=== PATIENT | female | born 1935 | race Caucasian/White ===

== ENCOUNTER 2021-10-26 21:15 | Inpatient (IN) ==
[2021-10-26] MEDS ORDERED: AMIODARONE 450 MG/9 ML VIAL IV ONE (21:23)
[2021-10-26] MEDS ORDERED: AMIODARONE INJ 150 MG in DEXTROSE 5% 100 ML IV ONE (21:29)
[2021-10-26] MEDS ORDERED: ETOMIDATE 20 MG/10 ML VIAL IV STA (21:30)
[2021-10-26] MEDS ORDERED: ROCURONIUM 100 MG/10 ML VIAL IV STA (21:30)
[2021-10-26] MEDS ORDERED: DOBUTamine 500 MG/250 ML PREMIX IV ONE (21:40)
[2021-10-26] MEDS ORDERED: NOREPINEPHRINE 4 MG/4 ML VIAL IV ONE (21:41)
[2021-10-26 21:45] LABS: Basophils # 0.1 10*3/uL (0.0-0.2); Basophils % 0.6 % (0.0-0.8); Eosinophils # 0.1 10*3/uL (0.0-0.87); Eosinophils % 0.8 % (0.00-10.9); Hematocrit 29.8 VOL% (35.7-47.0); Hemoglobin 8.6 GM/DL (12.0-16.0); Immature Granulocytes % 0.6 %; Immature Granulocytes Absolute 0.06 #; Lymphocytes # 3.8 10*3/uL (1.4-4.0); Lymphocytes % 40.2 % (21.3-54.2); Mean Corpuscular HGB Conc 28.9 GM/DL (32-36); Mean Corpuscular Volume 91.7 FL (87-102); Monocytes % 5.5 % (1.7-12.7); Neutrophils % 52.3 % (38.7-73.9); Platelet Count 236 T/CUMM (130-400); Red Blood Count 3.25 MC/CUMM (3.8-5.5); Red Cell Distribution Width 25.7 % (9.3-17.3); White Blood Count 9.3 T/CUMM (4-12)
[2021-10-26] MEDS: NOREPINEPHRINE 8 MG in SODIUM CHLORIDE 0.9% 242 ML IV PRN (21:45)
[2021-10-26] MEDS: AMIODARONE INJ 450 MG in DEXTROSE 5% 241 ML IV SCH (22:05)
[2021-10-26] MEDS ORDERED: SODIUM CHLORIDE 0.9% 1,000 ML IV STA ×2 (22:08→23:40)
[2021-10-26 22:11] LABS: Alanine Aminotransferase 80 U/L (13-56); Albumin 3.2 G/DL (3.4-5.0); Alkaline Phosphatase 69 U/L (45-117); Aspartate Amino Transferase 108 U/L (0-37); Blood Urea Nitrogen 30 MG/DL (7-18); Calcium 7.8 MG/DL (8.5-10.1); Carbon Dioxide 13 MMOL/L (21-32); Estimated Glom Filtration Rate 19 ML/MIN; Glucose 256 MG/DL (74-106); Osmolality,Calculated 274.8 MOS/KG (273-304); Potassium 4.9 MMOL/L (3.5-5.1); Sodium 130 MMOL/L (136-145); Total Protein 6.6 G/DL (6.4-8.2)
[2021-10-26] MEDS ORDERED: PIPERACILLIN/TAZOBACTAM 3,375 MG in SODIUM CHLORIDE 0.9% 100 ML IV STA (22:12)
[2021-10-26 22:15] LABS: ABG Base Excess -16.2 MMOL/L (-2.5-2.5); ABG HCO3 11.9 MMOL/L (20-26); ABG Oxygen Saturation 95.7 % (95-100); ABG TCO2 11.6 MMOL/L (23-27)
[2021-10-26 22:19] LABS: ABG PH 7.131 (7.35-7.45)
[2021-10-26] MEDS ORDERED: SODIUM BICARBONATE 50 MEQ/50 ML VIAL IV STA (22:20)
[2021-10-26] MEDS ORDERED: SODIUM BICARBONATE 50 MEQ/50 ML VIAL IV ONE (22:20)
[2021-10-26] MEDS ORDERED: FUROSEMIDE 40 MG/4 ML VIAL IV STA (22:29)
[2021-10-26] MEDS ORDERED: FUROSEMIDE 100 MG/10 ML VIAL ONE (22:30)
[2021-10-26 22:38] LABS: Bacteria,Urine Occasional /HPF (Few); Squamous Epithelial Cell,Urine Occasional /HPF (0-10)
[2021-10-26 22:41] LABS: Bilirubin,Urine Negative (Negative); Blood, Urine Negative (Negative); Glucose,Urine (UA) Negative (Negative); Ketones,Urine 80 mg/dL (Negative); Mucus,Urine Occasional /LPF (Occasional); Nitrite,Urine Negative (Negative); Protein,Urine 30 MG/DL; Urine Appearance CLEAR (Clear); Urine Color Yellow (Yellow); Urine Specific Gravity 1.018 (1.001-1.035); Urine Urobilinogen < 2.0 EU/DL (<2.0)
[2021-10-26 22:42] LABS: RBC,Urine 2 /HPF (0-4)
[2021-10-26 23:41] LABS: Platelet Estimate Adequate
[2021-10-26 23:42] LABS: Macrocytosis 1+
[2021-10-26 23:43] LABS: Acanthocytes Few; Schistocytes Slight
[2021-10-27] MEDS ORDERED: MIDAZOLAM 10 MG/2 ML VIAL ONE (00:14)
[2021-10-27] MEDS ORDERED: MIDAZOLAM 2 MG/2 ML VIAL IV STA (00:17)
[2021-10-27] MEDS ORDERED: MIDAZOLAM 100 MG in SODIUM CHLORIDE 0.9% 80 ML IV SCH (01:00)
[2021-10-27 02:12] LABS: INR 1.2; PT Patient Result 13.3 SECS (10.5-12.0); Partial Thromboplastin Time 28.9 SECS (23.8-32.1)
[2021-10-27] MEDS ORDERED: ALBUTEROL 2.5 MG/3 ML NEB RESP TX PRN (02:39)
[2021-10-27] MEDS ORDERED: ONDANSETRON 4 MG/2 ML VIAL IV PRN (02:39)
[2021-10-27] MEDS ORDERED: ROCURONIUM 100 MG/10 ML VIAL IV ONE (03:46)
[2021-10-27 04:06] LABS: ABG Base Excess -8.1 MMOL/L (-2.5-2.5); ABG HCO3 14.4 MMOL/L (20-26); ABG Oxygen Saturation 99.8 % (95-100); ABG PCO2 21.2 MM HG (35-48); ABG PH 7.449 (7.35-7.45); ABG PO2 338.4 MM HG (80-95)
[2021-10-27 04:36] LABS: Basophils % 0.2 % (0.0-0.8); Eosinophils % 0.1 % (0.00-10.9); Hematocrit 32.2 VOL% (35.7-47.0); Hemoglobin 9.8 GM/DL (12.0-16.0); Immature Granulocytes % 0.8 %; Immature Granulocytes Absolute 0.15 #; Lymphocytes % 11.3 % (21.3-54.2); Mean Corpuscular HGB Conc 30.4 GM/DL (32-36); Mean Corpuscular Volume 87.7 FL (87-102); Monocytes % 5.8 % (1.7-12.7); NRBC # 0.02 10*3/uL; Neutrophils % 81.8 % (38.7-73.9); Platelet Count 275 T/CUMM (130-400); Red Blood Count 3.67 MC/CUMM (3.8-5.5); Red Cell Distribution Width 26.4 % (9.3-17.3); White Blood Count 17.7 T/CUMM (4-12)
[2021-10-27] MEDS: PANTOPRAZOLE 40 MG VIAL IV SCH (04:42)
[2021-10-27 04:45] LABS: INR 1.3; PT Patient Result 14.2 SECS (10.5-12.0)
[2021-10-27 05:13] LABS: Albumin 3.3 G/DL (3.4-5.0); Bilirubin,Total 2.7 MG/DL (0.20-1.00); Calcium 8.3 MG/DL (8.5-10.1); Osmolality,Calculated 269.8 MOS/KG (273-304); Potassium 4.3 MMOL/L (3.5-5.1); Thyroid Stimulating Hormone 7.89 uIU/ml (0.358-3.74); Total Protein 6.5 G/DL (6.4-8.2)
[2021-10-27] MEDS: PIPERACILLIN/TAZOBACTAM 3,375 MG in SODIUM CHLORIDE 0.9% 100 ML IV SCH ×3 (06:00→22:00)
[2021-10-27] MEDS ORDERED: SODIUM BICARBONATE 50 MEQ/50 ML VIAL IV STA (06:15)
[2021-10-27] MEDS ORDERED: SODIUM BICARBONATE 50 MEQ/50 ML SYRINGE IV ONE (06:28)
[2021-10-27] MEDS ORDERED: SODIUM CHLORIDE 0.9% 1,000 ML IV SCH (06:30)
[2021-10-27] MEDS: LEVOTHYROXINE 125 MCG TABLET PO SCH (06:31)
[2021-10-27] MEDS ORDERED: DILTIAZEM 25 MG/5 ML VIAL IV ONE (07:36)
[2021-10-27] MEDS ORDERED: DILTIAZEM 50 MG/10 ML VIAL IV ONE (07:37)
[2021-10-27] MEDS ORDERED: FUROSEMIDE 40 MG/4 ML VIAL IV SCH (08:00)
[2021-10-27] MEDS ORDERED: METOPROLOL TARTRATE 25 MG TABLET PO SCH (08:00)
[2021-10-27 08:06] LABS: ABG Base Excess -4.1 MMOL/L (-2.5-2.5); ABG HCO3 18.2 MMOL/L (20-26); ABG Oxygen Saturation 97.2 % (95-100); ABG PO2 89.9 MM HG (80-95); Pt O2 Delivery Device Ventilator
[2021-10-27] MEDS ORDERED: APIXABAN 2.5 MG TABLET PO SCH (09:00)
[2021-10-27] MEDS ORDERED: SODIUM CHLORIDE 0.9% 500 ML IV STA (11:20)
[2021-10-27] MEDS ORDERED: EPINEPHrine 1 MG/ML VIAL ONE (11:29)
[2021-10-27 11:31] LABS: ABG Base Excess -9.3 MMOL/L (-2.5-2.5); ABG PH 7.529 (7.35-7.45); ABG TCO2 10.9 MMOL/L (23-27)
[2021-10-27 11:35] LABS: ABG PCO2 14.3 MM HG (35-48)
[2021-10-27] MEDS: FUROSEMIDE 40 MG/4 ML VIAL IV SCH ×2 (13:51→16:51)
[2021-10-27] MEDS ORDERED: NOREPINEPHRINE 4 MG/4 ML VIAL IV ONE (15:46)
[2021-10-27] MEDS: NOREPINEPHRINE 8 MG in SODIUM CHLORIDE 0.9% 242 ML IV PRN (16:03)
[2021-10-27] MEDS ORDERED: MIDAZOLAM 100 MG in SODIUM CHLORIDE 0.9% 80 ML IV PRN (17:17)
[2021-10-27] MEDS: AMIODARONE INJ 450 MG in DEXTROSE 5% 241 ML IV SCH (18:15)
[2021-10-27] MEDS: ENOXAPARIN 80 MG/0.8 ML SYRINGE SUBCUT SCH (20:49)
[2021-10-28] MEDS: PANTOPRAZOLE 40 MG VIAL IV SCH (02:27)
[2021-10-28 04:05] LABS: ABG Base Excess 0.8 MMOL/L (-2.5-2.5); ABG HCO3 25.1 MMOL/L (20-26); ABG PCO2 23.9 MM HG (35-48); ABG PH 7.573 (7.35-7.45); ABG TCO2 20.5 MMOL/L (23-27); Allen Test Positive; Pt O2 Delivery Device Ventilator
[2021-10-28] MEDS: NOREPINEPHRINE 8 MG in SODIUM CHLORIDE 0.9% 242 ML IV PRN (04:24)
[2021-10-28] MEDS: AMIODARONE INJ 450 MG in DEXTROSE 5% 241 ML IV SCH ×3 (04:46→20:03)
[2021-10-28 05:14] LABS: Basophils % 0.2 % (0.0-0.8); Hematocrit 26.5 VOL% (35.7-47.0); Hemoglobin 8.2 GM/DL (12.0-16.0); Immature Granulocytes % 0.4 %; Immature Granulocytes Absolute 0.04 #; Lymphocytes # 1.4 10*3/uL (1.4-4.0); Lymphocytes % 13.1 % (21.3-54.2); Mean Corpuscular HGB Conc 30.9 GM/DL (32-36); Mean Corpuscular Volume 85.2 FL (87-102); Monocytes % 5.4 % (1.7-12.7); Neutrophils % 80.9 % (38.7-73.9); Platelet Count 185 T/CUMM (130-400); Red Blood Count 3.11 MC/CUMM (3.8-5.5); Red Cell Distribution Width 25.8 % (9.3-17.3); White Blood Count 10.4 T/CUMM (4-12)
[2021-10-28 05:23] LABS: INR 1.7; PT Patient Result 17.9 SECS (10.5-12.0)
[2021-10-28 05:36] LABS: Hypochromia Slight; Microcytosis Slight; Platelet Estimate Normal
[2021-10-28 05:41] LABS: Calcium 7.9 MG/DL (8.5-10.1); Free T4 (Free Thyroxine) 0.92 NG/DL (0.76-1.46); Osmolality,Calculated 275.2 MOS/KG (273-304); Potassium 4.2 MMOL/L (3.5-5.1)
[2021-10-28 05:42] LABS: Albumin 2.3 G/DL (3.4-5.0); Calcium 8.2 MG/DL (8.5-10.1); Osmolality,Calculated 273.4 MOS/KG (273-304); Total Protein 5.3 G/DL (6.4-8.2)
[2021-10-28] MEDS: LEVOTHYROXINE 125 MCG TABLET PO SCH (05:44)
[2021-10-28] MEDS: PIPERACILLIN/TAZOBACTAM 3,375 MG in SODIUM CHLORIDE 0.9% 100 ML IV SCH ×3 (05:44→22:09)
[2021-10-28] MEDS ORDERED: METOPROLOL TARTRATE 5 MG/5 ML VIAL IV ONE (06:22)
[2021-10-28] MEDS ORDERED: DIGOXIN 0.5 MG/2 ML AMP IV ONE (08:23)
[2021-10-28] MEDS: FUROSEMIDE 40 MG/4 ML VIAL IV SCH ×2 (08:44→16:03)
[2021-10-28] MEDS: DEXMEDETOMIDINE 200 MCG in SODIUM CHLORIDE 0.9% 48 ML IV PRN (08:48)
[2021-10-28] MEDS: ENOXAPARIN 80 MG/0.8 ML SYRINGE SUBCUT SCH (20:58)
[2021-10-29] MEDS: AMIODARONE INJ 450 MG in DEXTROSE 5% 241 ML IV SCH ×3 (00:15→20:34)
[2021-10-29] MEDS: DEXMEDETOMIDINE 200 MCG in SODIUM CHLORIDE 0.9% 48 ML IV PRN (02:38)
[2021-10-29] MEDS: PANTOPRAZOLE 40 MG VIAL IV SCH (02:38)
[2021-10-29 03:37] LABS: ABG Base Excess 2.3 MMOL/L (-2.5-2.5); ABG HCO3 26.5 MMOL/L (20-26); ABG PCO2 23.4 MM HG (35-48); ABG TCO2 21.6 MMOL/L (23-27)
[2021-10-29 03:45] LABS: ABG PH 7.604 (7.35-7.45)
[2021-10-29] MEDS: PIPERACILLIN/TAZOBACTAM 3,375 MG in SODIUM CHLORIDE 0.9% 100 ML IV SCH (06:26)
[2021-10-29] MEDS: LEVOTHYROXINE 125 MCG TABLET PO SCH (06:27)
[2021-10-29 06:32] LABS: Basophils % 0.3 % (0.0-0.8); Eosinophils % 0.3 % (0.00-10.9); Hematocrit 27.1 VOL% (35.7-47.0); Hemoglobin 8.1 GM/DL (12.0-16.0); Immature Granulocytes % 0.6 %; Immature Granulocytes Absolute 0.05 #; Lymphocytes # 0.9 10*3/uL (1.4-4.0); Mean Corpuscular HGB Conc 29.9 GM/DL (32-36); Mean Corpuscular Volume 88.3 FL (87-102); Monocytes % 4.6 % (1.7-12.7); Neutrophils % 84.2 % (38.7-73.9); Platelet Count 144 T/CUMM (130-400); Red Blood Count 3.07 MC/CUMM (3.8-5.5); Red Cell Distribution Width 27.6 % (9.3-17.3); White Blood Count 8.6 T/CUMM (4-12)
[2021-10-29 06:39] LABS: INR 1.4; PT Patient Result 15.1 SECS (10.5-12.0)
[2021-10-29 06:52] LABS: Albumin 2.2 G/DL (3.4-5.0); Calcium 8.2 MG/DL (8.5-10.1); Osmolality,Calculated 273.2 MOS/KG (273-304); Potassium 3.1 MMOL/L (3.5-5.1); Total Protein 5.2 G/DL (6.4-8.2)
[2021-10-29 07:16] LABS: Calcium 8.1 MG/DL (8.5-10.1); Potassium 3.5 MMOL/L (3.5-5.1)
[2021-10-29] MEDS: FUROSEMIDE 40 MG/4 ML VIAL IV SCH ×2 (08:16→15:50)
[2021-10-29] MEDS: POTASSIUM CHLORIDE 20 MEQ TABLET PO PRN ×3 (08:29→12:30)
[2021-10-29 09:48] LABS: Allen Test Positive; Pt O2 Delivery Device Ventilator
[2021-10-29 09:49] LABS: ABG Base Excess 1.2 MMOL/L (-2.5-2.5); ABG HCO3 25.5 MMOL/L (20-26); ABG PCO2 37.5 MM HG (35-48); ABG PH 7.437 (7.35-7.45); ABG TCO2 23.4 MMOL/L (23-27)
[2021-10-29] MEDS ORDERED: AMIODARONE 450 MG/9 ML VIAL IV ONE (14:23)
[2021-10-29] MEDS ORDERED: AMIODARONE INJ 450 MG in DEXTROSE 5% 241 ML IV SCH (14:30)
[2021-10-29] MEDS: METOPROLOL SUCCINATE XL 50 MG TABLET PO SCH (14:34)
[2021-10-29] MEDS: ENOXAPARIN 80 MG/0.8 ML SYRINGE SUBCUT SCH (21:07)
[2021-10-30] MEDS: PANTOPRAZOLE 40 MG VIAL IV SCH (03:06)
[2021-10-30 04:55] LABS: Basophils % 0.4 % (0.0-0.8); Eosinophils # 0.1 10*3/uL (0.0-0.87); Eosinophils % 0.8 % (0.00-10.9); Hematocrit 27.4 VOL% (35.7-47.0); Immature Granulocytes % 0.6 %; Immature Granulocytes Absolute 0.04 #; Lymphocytes # 1.4 10*3/uL (1.4-4.0); Lymphocytes % 19.4 % (21.3-54.2); Mean Corpuscular HGB Conc 29.2 GM/DL (32-36); Mean Corpuscular Volume 90.7 FL (87-102); Monocytes % 8.1 % (1.7-12.7); Neutrophils % 70.7 % (38.7-73.9); Platelet Count 125 T/CUMM (130-400); Red Blood Count 3.02 MC/CUMM (3.8-5.5); Red Cell Distribution Width 26.8 % (9.3-17.3); White Blood Count 7.2 T/CUMM (4-12)
[2021-10-30 05:22] LABS: Calcium 8.1 MG/DL (8.5-10.1); Potassium 3.3 MMOL/L (3.5-5.1)
[2021-10-30] MEDS: LEVOTHYROXINE 125 MCG TABLET PO SCH (05:48)
[2021-10-30] MEDS: POTASSIUM CHLORIDE 20 MEQ TABLET PO PRN ×3 (05:48→12:26)
[2021-10-30] MEDS: FUROSEMIDE 40 MG/4 ML VIAL IV SCH ×2 (08:43→15:16)
[2021-10-30] MEDS: METOPROLOL SUCCINATE XL 50 MG TABLET PO SCH (10:29)
[2021-10-30] MEDS: LACTULOSE 20 GM/30 ML UDCUP PO PRN (10:29)
[2021-10-30] MEDS: MAGNESIUM SULF RIDER 2 GM/50 ML PREMIX IV PRN (10:32)
[2021-10-30] MEDS ORDERED: traMADol 50 MG TABLET PO PRN (12:09)
[2021-10-30] MEDS: AMIODARONE INJ 450 MG in DEXTROSE 5% 241 ML IV SCH ×2 (12:25→13:59)
[2021-10-30] MEDS: SERTRALINE 25 MG TABLET PO SCH ×2 (12:27→21:25)
[2021-10-30] MEDS: tiZANidine 4 MG TABLET PO PRN (16:47)
[2021-10-30] MEDS: ENOXAPARIN 80 MG/0.8 ML SYRINGE SUBCUT SCH (21:25)
[2021-10-31 04:05] LABS: Basophils % 0.5 % (0.0-0.8); Eosinophils # 0.1 10*3/uL (0.0-0.87); Eosinophils % 1.2 % (0.00-10.9); Hematocrit 26.3 VOL% (35.7-47.0); Hemoglobin 7.7 GM/DL (12.0-16.0); Immature Granulocytes % 0.5 %; Immature Granulocytes Absolute 0.03 #; Lymphocytes # 1.5 10*3/uL (1.4-4.0); Lymphocytes % 26.3 % (21.3-54.2); Mean Corpuscular HGB Conc 29.3 GM/DL (32-36); Mean Corpuscular Volume 90.4 FL (87-102); Monocytes % 7.6 % (1.7-12.7); NRBC # 0.02 10*3/uL; Neutrophils % 63.9 % (38.7-73.9); Platelet Count 110 T/CUMM (130-400); Red Blood Count 2.91 MC/CUMM (3.8-5.5); Red Cell Distribution Width 25.6 % (9.3-17.3); White Blood Count 5.8 T/CUMM (4-12)
[2021-10-31] MEDS: PANTOPRAZOLE 40 MG VIAL IV SCH (04:06)
[2021-10-31 04:19] LABS: Calcium 8.2 MG/DL (8.5-10.1); Osmolality,Calculated 282.8 MOS/KG (273-304); Potassium 4.5 MMOL/L (3.5-5.1)
[2021-10-31] MEDS: tiZANidine 4 MG TABLET PO PRN ×2 (04:20→14:07)
[2021-10-31 04:27] LABS: Hypochromia Slight
[2021-10-31] MEDS: AMIODARONE INJ 450 MG in DEXTROSE 5% 241 ML IV SCH (04:39)
[2021-10-31] MEDS ORDERED: SODIUM CHLORIDE 0.9% 250 ML IV ONE (05:15)
[2021-10-31] MEDS: LEVOTHYROXINE 125 MCG TABLET PO SCH (06:58)
[2021-10-31] MEDS: FUROSEMIDE 40 MG/4 ML VIAL IV SCH (08:30)
[2021-10-31] MEDS: METOPROLOL SUCCINATE XL 50 MG TABLET PO SCH (08:54)
[2021-10-31] MEDS ORDERED: AMIODARONE 200 MG TABLET PO SCH (09:00)
[2021-10-31] MEDS: PANTOPRAZOLE 40 MG TABLET PO SCH (10:25)
[2021-10-31] MEDS: SERTRALINE 25 MG TABLET PO SCH ×2 (10:25→20:20)
[2021-11-01] MEDS: tiZANidine 4 MG TABLET PO PRN ×2 (02:52→16:13)
[2021-11-01] MEDS: LEVOTHYROXINE 125 MCG TABLET PO SCH (05:44)
[2021-11-01] MEDS: SERTRALINE 25 MG TABLET PO SCH ×2 (08:19→20:03)
[2021-11-01] MEDS: PANTOPRAZOLE 40 MG TABLET PO SCH (08:19)
[2021-11-01] MEDS: AMIODARONE 200 MG TABLET PO SCH (08:19)
[2021-11-01] MEDS ORDERED: METOPROLOL SUCCINATE XL 25 MG TABLET PO SCH (09:00)
[2021-11-01 09:42] LABS: Calcium 8.2 MG/DL (8.5-10.1)
[2021-11-01 09:45] LABS: Basophils % 0.6 % (0.0-0.8); Eosinophils # 0.1 10*3/uL (0.0-0.87); Eosinophils % 1.2 % (0.00-10.9); Hematocrit 24.8 VOL% (35.7-47.0); Hemoglobin 7.3 GM/DL (12.0-16.0); Immature Granulocytes % 0.6 %; Immature Granulocytes Absolute 0.03 #; Lymphocytes % 20.7 % (21.3-54.2); Mean Corpuscular HGB Conc 29.4 GM/DL (32-36); Mean Corpuscular Volume 90.2 FL (87-102); Neutrophils % 70.9 % (38.7-73.9); Platelet Count 118 T/CUMM (130-400); Red Blood Count 2.75 MC/CUMM (3.8-5.5); Red Cell Distribution Width 26.2 % (9.3-17.3)
[2021-11-01] MEDS ORDERED: INFLUENZA VIRUS VACCINE 0.5 ML SYRINGE IM ONE (10:55)
[2021-11-01] MEDS: traMADol 50 MG TABLET PO PRN ×2 (12:26→20:03)
[2021-11-01] MEDS ORDERED: SODIUM CHLORIDE 0.9% 500 ML IV SCH (12:30)
[2021-11-01] MEDS ORDERED: HYDROmorphone 2 MG/1 ML VIAL IV ONE (12:33)
[2021-11-02] MEDS: tiZANidine 4 MG TABLET PO PRN ×3 (00:50→20:20)
[2021-11-02] MEDS ORDERED: ALPRAZolam 0.25 MG TABLET PO ONE (05:31)
[2021-11-02] MEDS: LEVOTHYROXINE 125 MCG TABLET PO SCH (05:38)
[2021-11-02 05:58] LABS: Basophils # 0.1 10*3/uL (0.0-0.2); Basophils % 0.6 % (0.0-0.8); Eosinophils # 0.1 10*3/uL (0.0-0.87); Eosinophils % 1.3 % (0.00-10.9); Hematocrit 30.7 VOL% (35.7-47.0); Hemoglobin 8.9 GM/DL (12.0-16.0); Immature Granulocytes % 0.6 %; Immature Granulocytes Absolute 0.05 #; Lymphocytes # 2.8 10*3/uL (1.4-4.0); Lymphocytes % 31.8 % (21.3-54.2); Mean Corpuscular Volume 90.3 FL (87-102); Monocytes % 7.5 % (1.7-12.7); NRBC # 0.03 10*3/uL; Neutrophils % 58.2 % (38.7-73.9); Platelet Count 218 T/CUMM (130-400); Red Cell Distribution Width 25.5 % (9.3-17.3); White Blood Count 8.8 T/CUMM (4-12)
[2021-11-02 06:09] LABS: Bilirubin,Total 2.1 MG/DL (0.20-1.00); Calcium 9.3 MG/DL (8.5-10.1); Osmolality,Calculated 274.5 MOS/KG (273-304); Potassium 4.8 MMOL/L (3.5-5.1); Total Protein 6.7 G/DL (6.4-8.2)
[2021-11-02 06:28] LABS: Acanthocytes Few; Hypochromia 1+
[2021-11-02 06:29] LABS: Microcytosis 1+; Polychromasia Slight; Target Cells Slight
[2021-11-02 06:30] LABS: Anisocytosis 1+; Platelet Estimate Normal; Schistocytes Slight
[2021-11-02] MEDS: PANTOPRAZOLE 40 MG TABLET PO SCH (08:19)
[2021-11-02] MEDS: AMIODARONE 200 MG TABLET PO SCH (08:19)
[2021-11-02] MEDS: SERTRALINE 25 MG TABLET PO SCH ×2 (08:19→20:20)
[2021-11-02] MEDS ORDERED: MORPHINE 2 MG/1 ML SYRINGE IV ONE (08:29)
[2021-11-02] MEDS ORDERED: diphenhydrAMINE CAP 25 MG CAPSULE PO ONE (08:30)
[2021-11-02] MEDS: APIXABAN 2.5 MG TABLET PO SCH ×2 (09:36→20:20)
[2021-11-02] MEDS ORDERED: LORazepam 2 MG/1 ML VIAL ONE (11:41)
[2021-11-02] MEDS ORDERED: LORazepam 2 MG/1 ML VIAL IV ONE (11:45)
[2021-11-02] MEDS: ALPRAZolam 0.25 MG TABLET PO PRN ×2 (12:20→20:20)
[2021-11-02] MEDS ORDERED: HALOPERIDOL 5 MG/ML AMP IV ONE (15:32)
[2021-11-02 17:56] LABS: Bacteria,Urine Occasional /HPF (Few); Bilirubin,Urine Negative (Negative); Blood, Urine Small mg/dL (Negative); Glucose,Urine (UA) Negative (Negative); Hyaline Casts,Urine 1 /LPF (0-3); Ketones,Urine 5 mg/dL (Negative); Mucus,Urine Occasional /LPF (Occasional); Nitrite,Urine Negative (Negative); Protein,Urine 30 MG/DL; RBC,Urine 3 /HPF (0-4); Squamous Epithelial Cell,Urine Occasional /HPF (0-10); Urine Appearance CLEAR (Clear); Urine Color Yellow (Yellow); Urine Specific Gravity 1.017 (1.001-1.035); Urine Urobilinogen < 2.0 EU/DL (<2.0)
[2021-11-02] MEDS: QUEtiapine 25 MG TABLET PO SCH (20:20)
[2021-11-03] MEDS: LEVOTHYROXINE 125 MCG TABLET PO SCH (06:13)
[2021-11-03 07:39] LABS: Basophils % 0.6 % (0.0-0.8); Eosinophils # 0.1 10*3/uL (0.0-0.87); Eosinophils % 1.1 % (0.00-10.9); Hematocrit 29.6 VOL% (35.7-47.0); Hemoglobin 8.6 GM/DL (12.0-16.0); Immature Granulocytes % 0.5 %; Immature Granulocytes Absolute 0.03 #; Lymphocytes # 1.2 10*3/uL (1.4-4.0); Lymphocytes % 18.8 % (21.3-54.2); Mean Corpuscular HGB Conc 29.1 GM/DL (32-36); Mean Corpuscular Volume 89.4 FL (87-102); Monocytes % 7.1 % (1.7-12.7); Neutrophils % 71.9 % (38.7-73.9); Platelet Count 130 T/CUMM (130-400); Red Blood Count 3.31 MC/CUMM (3.8-5.5); Red Cell Distribution Width 25.8 % (9.3-17.3); White Blood Count 6.4 T/CUMM (4-12)
[2021-11-03 08:18] LABS: Calcium 8.6 MG/DL (8.5-10.1); Osmolality,Calculated 276.1 MOS/KG (273-304); Potassium 3.7 MMOL/L (3.5-5.1)
[2021-11-03] MEDS ORDERED: METOPROLOL SUCCINATE XL 25 MG TABLET PO SCH (09:00)
[2021-11-03] MEDS: APIXABAN 2.5 MG TABLET PO SCH ×2 (09:35→20:42)
[2021-11-03] MEDS: PANTOPRAZOLE 40 MG TABLET PO SCH (09:35)
[2021-11-03] MEDS: AMIODARONE 200 MG TABLET PO SCH (09:35)
[2021-11-03] MEDS: SERTRALINE 25 MG TABLET PO SCH ×2 (09:35→20:43)
[2021-11-03] MEDS: ALPRAZolam 0.25 MG TABLET PO PRN ×2 (14:34→23:51)
[2021-11-03] MEDS: METOPROLOL SUCCINATE XL 25 MG TABLET PO SCH (20:42)
[2021-11-03] MEDS: QUEtiapine 25 MG TABLET PO SCH (20:42)
[2021-11-04] MEDS: traMADol 50 MG TABLET PO PRN ×2 (04:50→16:37)
[2021-11-04] MEDS: LEVOTHYROXINE 125 MCG TABLET PO SCH (06:42)
[2021-11-04 07:07] LABS: Basophils % 0.4 % (0.0-0.8); Eosinophils # 0.1 10*3/uL (0.0-0.87); Eosinophils % 0.7 % (0.00-10.9); Hematocrit 28.9 VOL% (35.7-47.0); Hemoglobin 8.6 GM/DL (12.0-16.0); Immature Granulocytes % 0.6 %; Immature Granulocytes Absolute 0.05 #; Lymphocytes # 1.5 10*3/uL (1.4-4.0); Lymphocytes % 16.4 % (21.3-54.2); Mean Corpuscular HGB Conc 29.8 GM/DL (32-36); Mean Corpuscular Volume 89.2 FL (87-102); Monocytes % 7.5 % (1.7-12.7); Neutrophils % 74.4 % (38.7-73.9); Platelet Count 201 T/CUMM (130-400); Red Blood Count 3.24 MC/CUMM (3.8-5.5); Red Cell Distribution Width 26.1 % (9.3-17.3)
[2021-11-04 07:29] LABS: Calcium 8.7 MG/DL (8.5-10.1); Osmolality,Calculated 267.7 MOS/KG (273-304)
[2021-11-04] MEDS: PANTOPRAZOLE 40 MG TABLET PO SCH (09:06)
[2021-11-04] MEDS: APIXABAN 2.5 MG TABLET PO SCH ×2 (09:06→21:17)
[2021-11-04] MEDS: SERTRALINE 25 MG TABLET PO SCH ×2 (09:06→21:17)
[2021-11-04] MEDS: METOPROLOL SUCCINATE XL 25 MG TABLET PO SCH ×2 (09:06→21:17)
[2021-11-04] MEDS: AMIODARONE 200 MG TABLET PO SCH (09:06)
[2021-11-04] MEDS: cefTRIAXone 1,000 MG in SODIUM CHLORIDE 0.9% 100 ML IV SCH (10:57)
[2021-11-04] MEDS: DILTIAZEM INJ 100 MG in SODIUM CHLORIDE 0.9% 100 ML IV SCH (11:33)
[2021-11-04] MEDS: QUEtiapine 25 MG TABLET PO SCH (21:17)
[2021-11-04] MEDS: ALPRAZolam 0.25 MG TABLET PO PRN (21:31)
[2021-11-04] MEDS: ACETAMINOPHEN 325 MG TABLET PO PRN (21:32)
[2021-11-05] MEDS: LEVOTHYROXINE 125 MCG TABLET PO SCH (05:43)
[2021-11-05 05:51] LABS: Basophils # 0.1 10*3/uL (0.0-0.2); Basophils % 0.7 % (0.0-0.8); Eosinophils # 0.1 10*3/uL (0.0-0.87); Eosinophils % 1.5 % (0.00-10.9); Hematocrit 26.7 VOL% (35.7-47.0); Hemoglobin 7.8 GM/DL (12.0-16.0); Immature Granulocytes % 0.7 %; Immature Granulocytes Absolute 0.05 #; Lymphocytes # 1.9 10*3/uL (1.4-4.0); Lymphocytes % 25.9 % (21.3-54.2); Mean Corpuscular HGB Conc 29.2 GM/DL (32-36); Mean Corpuscular Volume 87.8 FL (87-102); Monocytes % 6.8 % (1.7-12.7); NRBC # 0.02 10*3/uL; Neutrophils % 64.4 % (38.7-73.9); Platelet Count 215 T/CUMM (130-400); Red Blood Count 3.04 MC/CUMM (3.8-5.5); Red Cell Distribution Width 27.5 % (9.3-17.3); White Blood Count 7.4 T/CUMM (4-12)
[2021-11-05 06:21] LABS: Calcium 8.8 MG/DL (8.5-10.1); Osmolality,Calculated 265.7 MOS/KG (273-304); Potassium 3.8 MMOL/L (3.5-5.1)
[2021-11-05] MEDS: DILTIAZEM INJ 100 MG in SODIUM CHLORIDE 0.9% 100 ML IV SCH ×2 (07:29→12:51)
[2021-11-05] MEDS: SERTRALINE 25 MG TABLET PO SCH ×2 (08:52→21:35)
[2021-11-05] MEDS: AMIODARONE 200 MG TABLET PO SCH (08:52)
[2021-11-05] MEDS: PANTOPRAZOLE 40 MG TABLET PO SCH (08:52)
[2021-11-05] MEDS: METOPROLOL SUCCINATE XL 25 MG TABLET PO SCH ×2 (08:52→21:35)
[2021-11-05] MEDS: traMADol 50 MG TABLET PO PRN ×2 (08:53→16:48)
[2021-11-05] MEDS: APIXABAN 2.5 MG TABLET PO SCH ×2 (08:53→21:35)
[2021-11-05] MEDS: cefTRIAXone 1,000 MG in SODIUM CHLORIDE 0.9% 100 ML IV SCH (08:54)
[2021-11-05] MEDS ORDERED: FUROSEMIDE 40 MG/4 ML VIAL IV ONE (09:38)
[2021-11-05] MEDS ORDERED: BENZONATATE 100 MG CAPSULE PO PRN (10:08)
[2021-11-05] MEDS: ALPRAZolam 0.25 MG TABLET PO PRN (12:48)
[2021-11-05] MEDS: QUEtiapine 25 MG TABLET PO SCH (21:35)
[2021-11-06] MEDS: tiZANidine 4 MG TABLET PO PRN (04:04)
[2021-11-06] MEDS: LEVOTHYROXINE 125 MCG TABLET PO SCH (06:00)
[2021-11-06] MEDS ORDERED: FUROSEMIDE 40 MG/4 ML VIAL IV ONE (08:00)
[2021-11-06] MEDS ORDERED: DILTIAZEM 30 MG TABLET PO SCH (09:00)
[2021-11-06] MEDS: cefTRIAXone 1,000 MG in SODIUM CHLORIDE 0.9% 100 ML IV SCH (09:30)
[2021-11-06] MEDS: AMIODARONE 200 MG TABLET PO SCH (09:39)
[2021-11-06] MEDS: PANTOPRAZOLE 40 MG TABLET PO SCH (09:42)
[2021-11-06] MEDS: METOPROLOL SUCCINATE XL 25 MG TABLET PO SCH ×2 (09:43→22:04)
[2021-11-06] MEDS: SERTRALINE 25 MG TABLET PO SCH ×2 (09:44→22:03)
[2021-11-06] MEDS: SACUBITRIL/VALSARTAN 49-51 MG TABLET PO SCH (09:45)
[2021-11-06] MEDS: ALPRAZolam 0.25 MG TABLET PO PRN (17:45)
[2021-11-06] MEDS: QUEtiapine 25 MG TABLET PO SCH (22:04)
[2021-11-07] MEDS: LEVOTHYROXINE 125 MCG TABLET PO SCH (06:29)
[2021-11-07 07:07] LABS: Basophils # 0.1 10*3/uL (0.0-0.2); Basophils % 0.6 % (0.0-0.8); Eosinophils # 0.2 10*3/uL (0.0-0.87); Eosinophils % 1.8 % (0.00-10.9); Hematocrit 29.2 VOL% (35.7-47.0); Hemoglobin 8.4 GM/DL (12.0-16.0); Immature Granulocytes % 0.4 %; Immature Granulocytes Absolute 0.04 #; Lymphocytes # 1.4 10*3/uL (1.4-4.0); Lymphocytes % 14.9 % (21.3-54.2); Mean Corpuscular HGB Conc 28.8 GM/DL (32-36); Mean Corpuscular Volume 89.3 FL (87-102); Neutrophils % 77.3 % (38.7-73.9); Platelet Count 231 T/CUMM (130-400); Red Blood Count 3.27 MC/CUMM (3.8-5.5); Red Cell Distribution Width 29.4 % (9.3-17.3); White Blood Count 9.4 T/CUMM (4-12)
[2021-11-07 07:34] LABS: Calcium 9.1 MG/DL (8.5-10.1); Osmolality,Calculated 269.2 MOS/KG (273-304); Potassium 3.9 MMOL/L (3.5-5.1)
[2021-11-07] MEDS: SACUBITRIL/VALSARTAN 49-51 MG TABLET PO SCH (10:19)
[2021-11-07] MEDS: PANTOPRAZOLE 40 MG TABLET PO SCH (10:20)
[2021-11-07] MEDS: ALPRAZolam 0.25 MG TABLET PO PRN (10:20)
[2021-11-07] MEDS: AMIODARONE 200 MG TABLET PO SCH (10:20)
[2021-11-07] MEDS: METOPROLOL SUCCINATE XL 25 MG TABLET PO SCH ×2 (10:20→22:01)
[2021-11-07] MEDS: SERTRALINE 25 MG TABLET PO SCH ×2 (10:21→22:01)
[2021-11-07] MEDS: MAGNESIUM SULF RIDER 2 GM/50 ML PREMIX IV PRN (10:27)
[2021-11-07] MEDS: cefTRIAXone 1,000 MG in SODIUM CHLORIDE 0.9% 100 ML IV SCH (10:30)
[2021-11-07] MEDS ORDERED: ONDANSETRON 4 MG/2 ML VIAL ONE (13:16)
[2021-11-07] MEDS: QUEtiapine 25 MG TABLET PO SCH (22:02)
[2021-11-07] MEDS: ACETAMINOPHEN 325 MG TABLET PO PRN (22:28)
[2021-11-08] MEDS: LEVOTHYROXINE 125 MCG TABLET PO SCH (06:01)
[2021-11-08 06:59] LABS: Basophils # 0.1 10*3/uL (0.0-0.2); Basophils % 0.9 % (0.0-0.8); Eosinophils # 0.1 10*3/uL (0.0-0.87); Eosinophils % 1.1 % (0.00-10.9); Hematocrit 30.1 VOL% (35.7-47.0); Hemoglobin 8.9 GM/DL (12.0-16.0); Immature Granulocytes % 0.6 %; Immature Granulocytes Absolute 0.05 #; Lymphocytes # 1.4 10*3/uL (1.4-4.0); Lymphocytes % 17.2 % (21.3-54.2); Mean Corpuscular HGB Conc 29.6 GM/DL (32-36); Mean Corpuscular Volume 91.2 FL (87-102); Neutrophils % 74.2 % (38.7-73.9); Platelet Count 318 T/CUMM (130-400); Red Cell Distribution Width 30.5 % (9.3-17.3); White Blood Count 8.1 T/CUMM (4-12)
[2021-11-08 07:26] LABS: Calcium 8.4 MG/DL (8.5-10.1); Osmolality,Calculated 282.4 MOS/KG (273-304)
[2021-11-08 07:27] LABS: Calcium 8.6 MG/DL (8.5-10.1); Osmolality,Calculated 282.4 MOS/KG (273-304); Potassium 4.1 MMOL/L (3.5-5.1)
[2021-11-08] MEDS ORDERED: FUROSEMIDE 40 MG TABLET PO ONE (09:03)
[2021-11-08] MEDS: SACUBITRIL/VALSARTAN 49-51 MG TABLET PO SCH (10:10)
[2021-11-08] MEDS: AMIODARONE 200 MG TABLET PO SCH (10:10)
[2021-11-08] MEDS: PANTOPRAZOLE 40 MG TABLET PO SCH (10:11)
[2021-11-08] MEDS: METOPROLOL SUCCINATE XL 25 MG TABLET PO SCH ×2 (10:11→20:43)
[2021-11-08] MEDS: SERTRALINE 25 MG TABLET PO SCH ×2 (10:11→20:43)
[2021-11-08] MEDS: ALPRAZolam 0.25 MG TABLET PO PRN ×2 (10:17→17:04)
[2021-11-08] MEDS: ACETAMINOPHEN 325 MG TABLET PO PRN ×2 (10:17→17:05)
[2021-11-08] MEDS: cefTRIAXone 1,000 MG in SODIUM CHLORIDE 0.9% 100 ML IV SCH (10:42)
[2021-11-08] MEDS: QUEtiapine 25 MG TABLET PO SCH (20:43)
[2021-11-08] MEDS: APIXABAN 2.5 MG TABLET PO SCH (20:43)
[2021-11-09] MEDS: ACETAMINOPHEN 325 MG TABLET PO PRN ×2 (04:00→09:33)
[2021-11-09] MEDS: LEVOTHYROXINE 125 MCG TABLET PO SCH (05:49)
[2021-11-09 06:59] LABS: Calcium 8.6 MG/DL (8.5-10.1); Osmolality,Calculated 283.4 MOS/KG (273-304); Potassium 3.6 MMOL/L (3.5-5.1)
[2021-11-09 07:19] LABS: Basophils # 0.1 10*3/uL (0.0-0.2); Basophils % 0.8 % (0.0-0.8); Eosinophils # 0.1 10*3/uL (0.0-0.87); Hemoglobin 9.7 GM/DL (12.0-16.0); Immature Granulocytes % 0.6 %; Immature Granulocytes Absolute 0.05 #; Lymphocytes # 1.2 10*3/uL (1.4-4.0); Lymphocytes % 13.4 % (21.3-54.2); Mean Corpuscular HGB Conc 28.6 GM/DL (32-36); Mean Corpuscular Volume 92.6 FL (87-102); Monocytes % 5.1 % (1.7-12.7); NRBC # 0.02 10*3/uL; Neutrophils % 79.1 % (38.7-73.9); Platelet Count 378 T/CUMM (130-400); Red Blood Count 3.66 MC/CUMM (3.8-5.5); Red Cell Distribution Width 29.9 % (9.3-17.3); White Blood Count 8.7 T/CUMM (4-12)
[2021-11-09 07:21] LABS: Hematocrit 33.9 VOL% (35.7-47.0)
[2021-11-09] MEDS ORDERED: FLUCONAZOLE 100 MG TABLET PO SCH (09:00)
[2021-11-09] MEDS ORDERED: FUROSEMIDE 40 MG TABLET PO SCH (09:00)
[2021-11-09] MEDS: SACUBITRIL/VALSARTAN 49-51 MG TABLET PO SCH (09:30)
[2021-11-09] MEDS: PANTOPRAZOLE 40 MG TABLET PO SCH (09:31)
[2021-11-09] MEDS: APIXABAN 2.5 MG TABLET PO SCH (09:31)
[2021-11-09] MEDS: METOPROLOL SUCCINATE XL 25 MG TABLET PO SCH (09:31)
[2021-11-09] MEDS: AMIODARONE 200 MG TABLET PO SCH (09:32)
[2021-11-09] MEDS: SERTRALINE 25 MG TABLET PO SCH (09:32)
[2021-11-09] MEDS: cefTRIAXone 1,000 MG in SODIUM CHLORIDE 0.9% 100 ML IV SCH (09:42)
[2021-11-09] MEDS: LACTULOSE 20 GM/30 ML UDCUP PO PRN (10:27)
[2021-11-09] MEDS ORDERED: DESITIN 4OZ/NYSTATIN 15 GRAM MIXTURE PASTE TOP SCH (12:30)
[2021-11-09 19:40] VITALS: BP 159/51
== END 2021-11-09 13:55 | disposition swing bed (61) | DRG 208 ==
LOC: EDUNIT# → EDBD → N.ED 21:15 → N.EDINP 23:07 → SUATTDRO 23:07 → N.ICU 10-27 15:57 → N.TELES 11-02 21:59
PROVIDERS: ADMIT Internal Medicine; ATTEND Internal Medicine

== ENCOUNTER 2021-12-04 01:58 | Inpatient (IN) ==
[2021-12-04] MEDS ORDERED: LACTATED RINGERS 500 ML IV ONE (02:25)
[2021-12-04] MEDS ORDERED: ONDANSETRON 4 MG/2 ML VIAL IV STA (02:25)
[2021-12-04] MEDS ORDERED: PHENYLEPHRINE DRIP 40 MG/250 ML PREMIX IV PRN (02:28)
[2021-12-04] MEDS ORDERED: LACTATED RINGERS 1,000 ML IV SCH (03:00)
[2021-12-04 03:01] LABS: Eosinophils # 0.1 10*3/uL (0.0-0.87); Eosinophils % 1.3 % (0.00-10.9); Hematocrit 22.8 VOL% (35.7-47.0); Hemoglobin 6.6 GM/DL (12.0-16.0); Immature Granulocytes % 0.3 %; Immature Granulocytes Absolute 0.01 #; Lymphocytes # 1.2 10*3/uL (1.4-4.0); Lymphocytes % 30.8 % (21.3-54.2); Mean Corpuscular HGB Conc 28.9 GM/DL (32-36); Mean Corpuscular Volume 100.4 FL (87-102); Monocytes % 6.4 % (1.7-12.7); Neutrophils % 60.2 % (38.7-73.9); Platelet Count 209 T/CUMM (130-400); Red Blood Count 2.27 MC/CUMM (3.8-5.5); Red Cell Distribution Width 25.9 % (9.3-17.3); White Blood Count 3.9 T/CUMM (4-12)
[2021-12-04 03:10] LABS: INR 1.3; PT Patient Result 14.3 SECS (10.5-12.0)
[2021-12-04 03:21] LABS: Bacteria,Urine Moderate /HPF (Few); Bilirubin,Urine Small mg/dL (Negative); Blood, Urine Negative (Negative); Glucose,Urine (UA) Negative (Negative); Hyaline Casts,Urine 19 /LPF (0-3); Ketones,Urine Negative (Negative); Mucus,Urine Occasional /LPF (Occasional); Nitrite,Urine Negative (Negative); Protein,Urine Negative; RBC,Urine 2 /HPF (0-4); Squamous Epithelial Cell,Urine Occasional /HPF (0-10); Urine Appearance Clear (Clear); Urine Color Yellow (Yellow)
[2021-12-04 03:39] LABS: Albumin 2.3 G/DL (3.4-5.0); Bilirubin,Total 1.7 MG/DL (0.20-1.00); Osmolality,Calculated 274.1 MOS/KG (273-304); Potassium 3.4 MMOL/L (3.5-5.1); Total Protein 5.3 G/DL (6.4-8.2)
[2021-12-04] MEDS ORDERED: FUROSEMIDE 20 MG/2 ML VIAL IV STA (03:44)
[2021-12-04] MEDS ORDERED: FUROSEMIDE 40 MG/4 ML VIAL IV STA (03:46)
[2021-12-04] MEDS ORDERED: DEXTROSE 10% 250 ML BAG IV PRN (04:47)
[2021-12-04] MEDS ORDERED: ONDANSETRON 4 MG/2 ML VIAL IV PRN (04:47)
[2021-12-04] MEDS ORDERED: GLUCAGON 1 MG VIAL IM PRN (04:47)
[2021-12-04] MEDS ORDERED: SODIUM CHLORIDE 0.9% 1,000 ML IV PRN (04:47)
[2021-12-04 05:31] LABS: Eosinophils # 0.1 10*3/uL (0.0-0.87); Eosinophils % 1.9 % (0.00-10.9); Hematocrit 24.9 VOL% (35.7-47.0); Hemoglobin 7.4 GM/DL (12.0-16.0); Immature Granulocytes % 0.5 %; Immature Granulocytes Absolute 0.02 #; Lymphocytes # 1.2 10*3/uL (1.4-4.0); Lymphocytes % 29.3 % (21.3-54.2); Mean Corpuscular HGB Conc 29.7 GM/DL (32-36); Mean Corpuscular Volume 99.6 FL (87-102); Neutrophils % 60.3 % (38.7-73.9); Platelet Count 204 T/CUMM (130-400); Red Cell Distribution Width 25.6 % (9.3-17.3); White Blood Count 4.1 T/CUMM (4-12)
[2021-12-04] MEDS: INSULIN REGULAR 100 UNIT/ML SUBCUT SCH ×3 (05:45→19:08)
[2021-12-04] MEDS ORDERED: ALPRAZolam 0.25 MG TABLET PO PRN (08:51)
[2021-12-04] MEDS ORDERED: tiZANidine 4 MG TABLET PO PRN (08:51)
[2021-12-04] MEDS ORDERED: PANTOPRAZOLE 40 MG VIAL IV SCH (09:00)
[2021-12-04] MEDS: DOCUSATE SODIUM 100 MG CAPSULE PO SCH ×2 (11:37→22:35)
[2021-12-04] MEDS: AMIODARONE 200 MG TABLET PO SCH (11:37)
[2021-12-04] MEDS: SERTRALINE 25 MG TABLET PO SCH ×2 (11:37→22:35)
[2021-12-04] MEDS ORDERED: BENZONATATE 100 MG CAPSULE PO PRN (14:40)
[2021-12-04] MEDS: METOPROLOL TARTRATE 25 MG TABLET PO SCH (16:16)
[2021-12-04] MEDS: GABAPENTIN 300 MG CAPSULE PO SCH (22:35)
[2021-12-04] MEDS: traMADol 50 MG TABLET PO PRN (22:36)
[2021-12-05] MEDS: INSULIN REGULAR 100 UNIT/ML SUBCUT SCH ×4 (03:03→17:21)
[2021-12-05] MEDS: PANTOPRAZOLE 40 MG TABLET PO SCH (06:01)
[2021-12-05] MEDS: LEVOTHYROXINE 125 MCG TABLET PO SCH (06:01)
[2021-12-05 06:12] LABS: Basophils # 0.1 10*3/uL (0.0-0.2); Basophils % 0.8 % (0.0-0.8); Eosinophils # 0.1 10*3/uL (0.0-0.87); Eosinophils % 1.2 % (0.00-10.9); Hematocrit 40.6 VOL% (35.7-47.0); Hemoglobin 12.4 GM/DL (12.0-16.0); Immature Granulocytes % 0.5 %; Immature Granulocytes Absolute 0.03 #; Lymphocytes % 30.1 % (21.3-54.2); Mean Corpuscular HGB Conc 30.5 GM/DL (32-36); Mean Corpuscular Volume 93.1 FL (87-102); Monocytes % 5.7 % (1.7-12.7); Neutrophils % 61.7 % (38.7-73.9); Red Cell Distribution Width 26.4 % (9.3-17.3)
[2021-12-05 06:13] LABS: Platelet Count 258 T/CUMM (130-400); Red Blood Count 4.36 MC/CUMM (3.8-5.5); White Blood Count 6.6 T/CUMM (4-12)
[2021-12-05 06:28] LABS: Albumin 3.3 G/DL (3.4-5.0); Bilirubin,Total 3.4 MG/DL (0.20-1.00); Calcium 8.9 MG/DL (8.5-10.1); Osmolality,Calculated 268.4 MOS/KG (273-304); Potassium 3.5 MMOL/L (3.5-5.1); Total Protein 7.3 G/DL (6.4-8.2)
[2021-12-05] MEDS: DOCUSATE SODIUM 100 MG CAPSULE PO SCH ×2 (09:05→21:25)
[2021-12-05] MEDS: GABAPENTIN 300 MG CAPSULE PO SCH ×2 (09:05→21:25)
[2021-12-05] MEDS: METOPROLOL TARTRATE 25 MG TABLET PO SCH ×2 (09:06→16:18)
[2021-12-05] MEDS: AMIODARONE 200 MG TABLET PO SCH (09:06)
[2021-12-05] MEDS: SERTRALINE 25 MG TABLET PO SCH (09:06)
[2021-12-05] MEDS: cefTRIAXone 1,000 MG in SODIUM CHLORIDE 0.9% 100 ML IV SCH (09:14)
[2021-12-06] MEDS: INSULIN REGULAR 100 UNIT/ML SUBCUT SCH ×4 (00:03→18:07)
[2021-12-06 05:28] LABS: Basophils # 0.1 10*3/uL (0.0-0.2); Basophils % 1.1 % (0.0-0.8); Eosinophils # 0.1 10*3/uL (0.0-0.87); Eosinophils % 1.2 % (0.00-10.9); Hematocrit 35.1 VOL% (35.7-47.0); Hemoglobin 10.8 GM/DL (12.0-16.0); Immature Granulocytes % 0.5 %; Immature Granulocytes Absolute 0.03 #; Lymphocytes # 1.7 10*3/uL (1.4-4.0); Mean Corpuscular HGB Conc 30.8 GM/DL (32-36); Mean Corpuscular Volume 92.6 FL (87-102); Monocytes % 6.8 % (1.7-12.7); Neutrophils % 64.4 % (38.7-73.9); Platelet Count 229 T/CUMM (130-400); Red Blood Count 3.79 MC/CUMM (3.8-5.5); White Blood Count 6.5 T/CUMM (4-12)
[2021-12-06 05:47] LABS: Bilirubin,Total 2.7 MG/DL (0.20-1.00); Calcium 8.6 MG/DL (8.5-10.1); Osmolality,Calculated 269.4 MOS/KG (273-304); Potassium 3.7 MMOL/L (3.5-5.1); Total Protein 6.7 G/DL (6.4-8.2)
[2021-12-06] MEDS: PANTOPRAZOLE 40 MG TABLET PO SCH (06:03)
[2021-12-06] MEDS: LEVOTHYROXINE 125 MCG TABLET PO SCH (06:03)
[2021-12-06 06:12] LABS: Acanthocytes Few; Anisocytosis 2+; Platelet Estimate Normal; Poikilocytosis 1+
[2021-12-06 06:13] LABS: Macrocytosis Slight; Tear Drop Cells Few
[2021-12-06] MEDS: METOPROLOL TARTRATE 25 MG TABLET PO SCH ×2 (09:31→18:04)
[2021-12-06] MEDS: GABAPENTIN 300 MG CAPSULE PO SCH ×2 (09:31→21:50)
[2021-12-06] MEDS: AMIODARONE 200 MG TABLET PO SCH (09:31)
[2021-12-06] MEDS: SERTRALINE 25 MG TABLET PO SCH (09:31)
[2021-12-06] MEDS: traMADol 50 MG TABLET PO PRN ×2 (09:32→21:53)
[2021-12-06] MEDS: DOCUSATE SODIUM 100 MG CAPSULE PO SCH ×2 (09:32→21:50)
[2021-12-06] MEDS: cefTRIAXone 1,000 MG in SODIUM CHLORIDE 0.9% 100 ML IV SCH (09:33)
[2021-12-06] MEDS: ALPRAZolam 0.25 MG TABLET PO PRN (15:25)
[2021-12-06] MEDS: ENOXAPARIN 30 MG/0.3 ML SYRINGE SUBCUT SCH (21:49)
[2021-12-07] MEDS: INSULIN REGULAR 100 UNIT/ML SUBCUT SCH ×4 (00:48→18:45)
[2021-12-07 05:27] LABS: Basophils % 0.4 % (0.0-0.8); Eosinophils % 0.1 % (0.00-10.9); Hematocrit 35.7 VOL% (35.7-47.0); Hemoglobin 10.7 GM/DL (12.0-16.0); Immature Granulocytes % 0.7 %; Immature Granulocytes Absolute 0.07 #; Lymphocytes % 19.5 % (21.3-54.2); Mean Corpuscular Volume 93.7 FL (87-102); Monocytes % 6.6 % (1.7-12.7); Neutrophils % 72.7 % (38.7-73.9); Platelet Count 230 T/CUMM (130-400); Red Blood Count 3.81 MC/CUMM (3.8-5.5); Red Cell Distribution Width 24.5 % (9.3-17.3); White Blood Count 10.5 T/CUMM (4-12)
[2021-12-07 05:45] LABS: Albumin 2.9 G/DL (3.4-5.0); Calcium 8.7 MG/DL (8.5-10.1); Osmolality,Calculated 272.4 MOS/KG (273-304); Potassium 4.1 MMOL/L (3.5-5.1); Total Protein 6.5 G/DL (6.4-8.2)
[2021-12-07] MEDS: LEVOTHYROXINE 125 MCG TABLET PO SCH (05:48)
[2021-12-07] MEDS: PANTOPRAZOLE 40 MG TABLET PO SCH (05:48)
[2021-12-07 05:58] LABS: Hypochromia 1+; Microcytosis 1+; Ovalocytes Slight; Polychromasia Slight
[2021-12-07 05:59] LABS: Platelet Estimate Normal
[2021-12-07] MEDS: cefTRIAXone 1,000 MG in SODIUM CHLORIDE 0.9% 100 ML IV SCH (10:10)
[2021-12-07] MEDS: METOPROLOL TARTRATE 25 MG TABLET PO SCH ×2 (10:13→16:54)
[2021-12-07] MEDS: AMIODARONE 200 MG TABLET PO SCH (10:13)
[2021-12-07] MEDS: DOCUSATE SODIUM 100 MG CAPSULE PO SCH ×2 (10:14→20:35)
[2021-12-07] MEDS: GABAPENTIN 300 MG CAPSULE PO SCH ×2 (11:18→20:36)
[2021-12-07] MEDS: SERTRALINE 25 MG TABLET PO SCH (11:18)
[2021-12-07 13:51] LABS: Basophils # 0.1 10*3/uL (0.0-0.2); Basophils % 0.9 % (0.0-0.8); Eosinophils # 0.1 10*3/uL (0.0-0.87); Eosinophils % 1.2 % (0.00-10.9); Hematocrit 36.8 VOL% (35.7-47.0); Hemoglobin 11.3 GM/DL (12.0-16.0); Immature Granulocytes % 0.3 %; Immature Granulocytes Absolute 0.03 #; Lymphocytes # 2.4 10*3/uL (1.4-4.0); Lymphocytes % 26.3 % (21.3-54.2); Mean Corpuscular HGB Conc 30.7 GM/DL (32-36); Mean Corpuscular Volume 94.4 FL (87-102); Monocytes % 6.2 % (1.7-12.7); Neutrophils % 65.1 % (38.7-73.9); Platelet Count 192 T/CUMM (130-400); Red Cell Distribution Width 24.1 % (9.3-17.3); White Blood Count 9.2 T/CUMM (4-12)
[2021-12-07 14:09] LABS: Calcium 8.9 MG/DL (8.5-10.1); Osmolality,Calculated 266.8 MOS/KG (273-304); Potassium 4.2 MMOL/L (3.5-5.1)
[2021-12-07] MEDS: ENOXAPARIN 30 MG/0.3 ML SYRINGE SUBCUT SCH (20:36)
[2021-12-07] MEDS: traMADol 50 MG TABLET PO PRN (20:36)
[2021-12-08] MEDS: INSULIN REGULAR 100 UNIT/ML SUBCUT SCH ×4 (00:18→18:00)
[2021-12-08] MEDS: ACETAMINOPHEN 325 MG TABLET PO PRN ×2 (02:36→14:07)
[2021-12-08 05:21] LABS: Basophils # 0.1 10*3/uL (0.0-0.2); Basophils % 1.1 % (0.0-0.8); Eosinophils # 0.2 10*3/uL (0.0-0.87); Eosinophils % 2.7 % (0.00-10.9); Hemoglobin 10.6 GM/DL (12.0-16.0); Immature Granulocytes % 0.3 %; Immature Granulocytes Absolute 0.02 #; Lymphocytes # 1.4 10*3/uL (1.4-4.0); Lymphocytes % 20.3 % (21.3-54.2); Mean Corpuscular HGB Conc 30.3 GM/DL (32-36); Mean Corpuscular Volume 94.9 FL (87-102); Monocytes % 8.2 % (1.7-12.7); Neutrophils % 67.4 % (38.7-73.9); Platelet Count 191 T/CUMM (130-400); Red Blood Count 3.69 MC/CUMM (3.8-5.5); Red Cell Distribution Width 23.9 % (9.3-17.3); White Blood Count 7.1 T/CUMM (4-12)
[2021-12-08 05:52] LABS: Albumin 2.5 G/DL (3.4-5.0); Bilirubin,Total 1.8 MG/DL (0.20-1.00); Calcium 8.8 MG/DL (8.5-10.1); Osmolality,Calculated 272.2 MOS/KG (273-304); Potassium 4.7 MMOL/L (3.5-5.1); Total Protein 6.1 G/DL (6.4-8.2)
[2021-12-08 05:53] LABS: Anisocytosis 1+; Hypochromia 1+; Microcytosis 1+; Polychromasia Slight
[2021-12-08 05:54] LABS: Ovalocytes Slight; Platelet Estimate Adequate; Target Cells Slight
[2021-12-08] MEDS: PANTOPRAZOLE 40 MG TABLET PO SCH (06:43)
[2021-12-08] MEDS: LEVOTHYROXINE 125 MCG TABLET PO SCH (06:43)
[2021-12-08] MEDS: traMADol 50 MG TABLET PO PRN ×3 (07:30→20:49)
[2021-12-08] MEDS: DOCUSATE SODIUM 100 MG CAPSULE PO SCH ×2 (11:07→20:49)
[2021-12-08] MEDS: GABAPENTIN 300 MG CAPSULE PO SCH ×2 (11:07→20:49)
[2021-12-08] MEDS: SERTRALINE 25 MG TABLET PO SCH (11:07)
[2021-12-08] MEDS: METOPROLOL TARTRATE 25 MG TABLET PO SCH ×2 (11:07→17:03)
[2021-12-08] MEDS: AMIODARONE 200 MG TABLET PO SCH (11:07)
[2021-12-08] MEDS: cefTRIAXone 1,000 MG in SODIUM CHLORIDE 0.9% 100 ML IV SCH (11:08)
[2021-12-08] MEDS: ENOXAPARIN 30 MG/0.3 ML SYRINGE SUBCUT SCH (20:48)
[2021-12-09] MEDS: INSULIN REGULAR 100 UNIT/ML SUBCUT SCH ×3 (00:04→13:04)
[2021-12-09] MEDS: ACETAMINOPHEN 325 MG TABLET PO PRN ×2 (01:35→18:04)
[2021-12-09] MEDS: LEVOTHYROXINE 125 MCG TABLET PO SCH (06:38)
[2021-12-09] MEDS: PANTOPRAZOLE 40 MG TABLET PO SCH (06:38)
[2021-12-09] MEDS: DOCUSATE SODIUM 100 MG CAPSULE PO SCH ×2 (09:06→21:19)
[2021-12-09] MEDS: ALPRAZolam 0.25 MG TABLET PO PRN (09:06)
[2021-12-09] MEDS: cefTRIAXone 1,000 MG in SODIUM CHLORIDE 0.9% 100 ML IV SCH (09:06)
[2021-12-09] MEDS: METOPROLOL TARTRATE 25 MG TABLET PO SCH ×2 (09:06→16:12)
[2021-12-09] MEDS: SERTRALINE 25 MG TABLET PO SCH (09:06)
[2021-12-09] MEDS: GABAPENTIN 300 MG CAPSULE PO SCH ×2 (09:06→21:16)
[2021-12-09] MEDS: AMIODARONE 200 MG TABLET PO SCH (09:06)
[2021-12-09] MEDS: traMADol 50 MG TABLET PO PRN (15:24)
[2021-12-09] MEDS: ENOXAPARIN 30 MG/0.3 ML SYRINGE SUBCUT SCH (21:19)
[2021-12-10] MEDS: INSULIN REGULAR 100 UNIT/ML SUBCUT SCH ×5 (05:16→17:47)
[2021-12-10 05:52] LABS: Basophils # 0.1 10*3/uL (0.0-0.2); Basophils % 1.1 % (0.0-0.8); Eosinophils # 0.2 10*3/uL (0.0-0.87); Eosinophils % 2.8 % (0.00-10.9); Hematocrit 36.1 VOL% (35.7-47.0); Hemoglobin 10.7 GM/DL (12.0-16.0); Immature Granulocytes % 0.5 %; Immature Granulocytes Absolute 0.04 #; Lymphocytes # 2.3 10*3/uL (1.4-4.0); Lymphocytes % 27.8 % (21.3-54.2); Mean Corpuscular HGB Conc 29.6 GM/DL (32-36); Mean Corpuscular Volume 94.8 FL (87-102); Monocytes % 5.3 % (1.7-12.7); Neutrophils % 62.5 % (38.7-73.9); Platelet Count 236 T/CUMM (130-400); Red Blood Count 3.81 MC/CUMM (3.8-5.5); Red Cell Distribution Width 24.4 % (9.3-17.3); White Blood Count 8.3 T/CUMM (4-12)
[2021-12-10] MEDS: LEVOTHYROXINE 125 MCG TABLET PO SCH (06:02)
[2021-12-10] MEDS: PANTOPRAZOLE 40 MG TABLET PO SCH (06:02)
[2021-12-10 06:50] LABS: Anisocytosis 1+; Eosinophils 2 % (0-10); Hypochromia 1+; Lymphocytes 25 % (20-55); Microcytosis 1+; Polychromasia Slight; Segmented Neutrophils 68 % (50-85); Total Cells Counted 100
[2021-12-10 06:51] LABS: Platelet Estimate Normal; Target Cells Slight
[2021-12-10] MEDS: METOPROLOL TARTRATE 25 MG TABLET PO SCH ×2 (09:39→17:48)
[2021-12-10] MEDS: GABAPENTIN 300 MG CAPSULE PO SCH ×2 (09:39→20:25)
[2021-12-10] MEDS: DOCUSATE SODIUM 100 MG CAPSULE PO SCH ×2 (09:39→20:25)
[2021-12-10] MEDS: AMIODARONE 200 MG TABLET PO SCH (09:39)
[2021-12-10] MEDS: SERTRALINE 25 MG TABLET PO SCH (09:40)
[2021-12-10] MEDS: cefTRIAXone 1,000 MG in SODIUM CHLORIDE 0.9% 100 ML IV SCH (09:40)
[2021-12-10] MEDS: traMADol 50 MG TABLET PO PRN ×2 (09:41→20:25)
[2021-12-10] MEDS: ALPRAZolam 0.25 MG TABLET PO PRN ×2 (09:42→20:25)
[2021-12-10] MEDS: ENOXAPARIN 30 MG/0.3 ML SYRINGE SUBCUT SCH (20:25)
[2021-12-11] MEDS: INSULIN REGULAR 100 UNIT/ML SUBCUT SCH ×3 (00:15→12:05)
[2021-12-11] MEDS: LEVOTHYROXINE 125 MCG TABLET PO SCH (06:11)
[2021-12-11] MEDS: PANTOPRAZOLE 40 MG TABLET PO SCH (06:11)
[2021-12-11] MEDS: GABAPENTIN 300 MG CAPSULE PO SCH (09:09)
[2021-12-11] MEDS: DOCUSATE SODIUM 100 MG CAPSULE PO SCH (09:09)
[2021-12-11] MEDS: METOPROLOL TARTRATE 25 MG TABLET PO SCH (09:09)
[2021-12-11] MEDS: ALPRAZolam 0.25 MG TABLET PO PRN (09:09)
[2021-12-11] MEDS: AMIODARONE 200 MG TABLET PO SCH (09:09)
[2021-12-11] MEDS: cefTRIAXone 1,000 MG in SODIUM CHLORIDE 0.9% 100 ML IV SCH (09:10)
[2021-12-11] MEDS: SERTRALINE 25 MG TABLET PO SCH (09:10)
[2021-12-11] MEDS ORDERED: MAGNESIUM HYDROXIDE SUSP 30 ML UDCUP PO ONE (11:20)
[2021-12-11 12:53] VITALS: BP 146/63
[2021-12-11] MEDS: traMADol 50 MG TABLET PO PRN (13:21)
== END 2021-12-11 14:01 | disposition swing bed (61) | DRG 811 ==
LOC: EDBD → EDUNIT# → N.ED 01:58 → N.EDINP 03:48 → N.5E 11:46
PROVIDERS: ADMIT Internal Medicine; ATTEND Internal Medicine

== ENCOUNTER 2022-01-30 14:58 | Inpatient (IN) ==
[2022-01-30] MEDS ORDERED: cefTRIAXone 1,000 MG in SODIUM CHLORIDE 0.9% 100 ML IV STA (16:45)
[2022-01-30] MEDS ORDERED: AZITHROMYCIN INJ 500 MG in SODIUM CHLORIDE 0.9% 250 ML IV STA (16:45)
[2022-01-30 17:30] LABS: Basophils % 0.5 % (0.0-0.8); Eosinophils # 0.1 10*3/uL (0.0-0.87); Eosinophils % 1.1 % (0.00-10.9); Hematocrit 27.4 VOL% (35.7-47.0); Hemoglobin 8.7 GM/DL (12.0-16.0); Immature Granulocytes % 0.6 %; Immature Granulocytes Absolute 0.04 #; Lymphocytes # 1.2 10*3/uL (1.4-4.0); Lymphocytes % 17.7 % (21.3-54.2); Mean Corpuscular HGB Conc 31.8 GM/DL (32-36); Mean Corpuscular Volume 101.1 FL (87-102); Mean Platelet Volume 9.7 FL (9.6-12.0); Monocytes # 0.3 10*3/uL (0.11-0.8); Monocytes % 4.9 % (1.7-12.7); Neutrophils % 75.2 % (38.7-73.9); Platelet Count 291 T/CUMM (130-400); Red Blood Count 2.71 MC/CUMM (3.8-5.5); Red Cell Distribution Width 25.1 % (9.3-17.3); White Blood Count 6.5 T/CUMM (4-12)
[2022-01-30 17:47] LABS: Albumin 2.8 G/DL (3.4-5.0); Bilirubin,Total 1.8 MG/DL (0.20-1.00); Calcium 8.5 MG/DL (8.5-10.1); Osmolality,Calculated 266.2 MOS/KG (273-304); Potassium 2.9 MMOL/L (3.5-5.1); Total Protein 6.5 G/DL (6.4-8.2)
[2022-01-30] MEDS ORDERED: POTASSIUM CHLORIDE 20 MEQ TABLET PO STA (18:07)
[2022-01-30] MEDS ORDERED: ONDANSETRON 4 MG/2 ML VIAL IV PRN (18:11)
[2022-01-30] MEDS ORDERED: SODIUM CHLORIDE 0.9% 1,000 ML IV SCH (18:30)
[2022-01-30] MEDS: DOCUSATE SODIUM 100 MG CAPSULE PO SCH (21:47)
[2022-01-31] MEDS: SODIUM CHLORIDE 0.9% 1,000 ML IV SCH (00:09)
[2022-01-31] MEDS ORDERED: PANTOPRAZOLE 40 MG TABLET PO SCH (09:00)
[2022-01-31] MEDS: DOCUSATE SODIUM 100 MG CAPSULE PO SCH ×2 (11:14→22:38)
[2022-01-31] MEDS: ALPRAZolam 0.25 MG TABLET PO PRN ×2 (11:45→17:49)
[2022-01-31] MEDS: AMIODARONE 200 MG TABLET PO SCH (11:45)
[2022-01-31] MEDS: SERTRALINE 25 MG TABLET PO SCH (11:46)
[2022-01-31] MEDS: APIXABAN 2.5 MG TABLET PO SCH ×2 (11:46→22:03)
[2022-01-31] MEDS: ACETAMINOPHEN 325 MG TABLET PO PRN (11:47)
[2022-01-31] MEDS: METOPROLOL TARTRATE 25 MG TABLET PO SCH ×2 (11:47→17:49)
[2022-01-31 12:46] LABS: Calcium 8.4 MG/DL (8.5-10.1); Osmolality,Calculated 268.9 MOS/KG (273-304); Potassium 2.9 MMOL/L (3.5-5.1)
[2022-01-31] MEDS: POTASSIUM CHLORIDE 20 MEQ TABLET PO PRN ×4 (13:16→22:02)
[2022-01-31] MEDS ORDERED: cefTRIAXone 1,000 MG in SODIUM CHLORIDE 0.9% 100 ML IV SCH (17:00)
[2022-01-31] MEDS: traMADol 50 MG TABLET PO PRN (17:49)
[2022-02-01] MEDS: ALPRAZolam 0.25 MG TABLET PO PRN ×3 (00:10→23:43)
[2022-02-01] MEDS ORDERED: PANTOPRAZOLE 40 MG TABLET PO ONE (05:04)
[2022-02-01] MEDS: PANTOPRAZOLE 40 MG TABLET PO SCH (05:50)
[2022-02-01 06:11] LABS: Basophils # 0.1 10*3/uL (0.0-0.2); Basophils % 0.9 % (0.0-0.8); Eosinophils # 0.1 10*3/uL (0.0-0.87); Eosinophils % 1.1 % (0.00-10.9); Hematocrit 25.3 VOL% (35.7-47.0); Hemoglobin 8.1 GM/DL (12.0-16.0); Immature Granulocytes % 0.5 %; Immature Granulocytes Absolute 0.03 #; Lymphocytes # 1.5 10*3/uL (1.4-4.0); Lymphocytes % 26.5 % (21.3-54.2); Mean Corpuscular Volume 101.6 FL (87-102); Mean Platelet Volume 9.7 FL (9.6-12.0); Monocytes # 0.3 10*3/uL (0.11-0.8); Monocytes % 4.9 % (1.7-12.7); Neutrophils % 66.1 % (38.7-73.9); Platelet Count 253 T/CUMM (130-400); Red Blood Count 2.49 MC/CUMM (3.8-5.5); Red Cell Distribution Width 24.7 % (9.3-17.3); White Blood Count 5.5 T/CUMM (4-12)
[2022-02-01 06:32] LABS: Calcium 8.6 MG/DL (8.5-10.1); Osmolality,Calculated 271.7 MOS/KG (273-304); Potassium 3.7 MMOL/L (3.5-5.1)
[2022-02-01] MEDS: APIXABAN 2.5 MG TABLET PO SCH (09:19)
[2022-02-01] MEDS: METOPROLOL TARTRATE 25 MG TABLET PO SCH ×2 (09:19→17:09)
[2022-02-01] MEDS: SERTRALINE 25 MG TABLET PO SCH (09:19)
[2022-02-01] MEDS: traMADol 50 MG TABLET PO PRN ×2 (09:19→23:44)
[2022-02-01] MEDS: DOCUSATE SODIUM 100 MG CAPSULE PO SCH ×2 (09:19→20:58)
[2022-02-01] MEDS: AMIODARONE 200 MG TABLET PO SCH (09:19)
[2022-02-01] MEDS: PIPERACILLIN/TAZOBACTAM 3,375 MG in SODIUM CHLORIDE 0.9% 100 ML IV SCH ×2 (11:03→20:45)
[2022-02-02] MEDS: PIPERACILLIN/TAZOBACTAM 3,375 MG in SODIUM CHLORIDE 0.9% 100 ML IV SCH ×3 (03:51→19:30)
[2022-02-02 05:12] LABS: Basophils # 0.1 10*3/uL (0.0-0.2); Basophils % 1.1 % (0.0-0.8); Eosinophils # 0.1 10*3/uL (0.0-0.87); Eosinophils % 1.1 % (0.00-10.9); Hematocrit 27.2 VOL% (35.7-47.0); Hemoglobin 8.3 GM/DL (12.0-16.0); Immature Granulocytes % 0.5 %; Immature Granulocytes Absolute 0.03 #; Lymphocytes # 1.5 10*3/uL (1.4-4.0); Lymphocytes % 26.7 % (21.3-54.2); Mean Corpuscular HGB Conc 30.5 GM/DL (32-36); Mean Corpuscular Volume 102.3 FL (87-102); Mean Platelet Volume 9.5 FL (9.6-12.0); Monocytes # 0.3 10*3/uL (0.11-0.8); Monocytes % 5.5 % (1.7-12.7); Neutrophils % 65.1 % (38.7-73.9); Platelet Count 267 T/CUMM (130-400); Red Blood Count 2.66 MC/CUMM (3.8-5.5); Red Cell Distribution Width 25.2 % (9.3-17.3); White Blood Count 5.7 T/CUMM (4-12)
[2022-02-02 05:28] LABS: Calcium 8.8 MG/DL (8.5-10.1); Osmolality,Calculated 269.7 MOS/KG (273-304); Potassium 3.5 MMOL/L (3.5-5.1)
[2022-02-02 05:33] LABS: Platelet Estimate Normal
[2022-02-02] MEDS: PANTOPRAZOLE 40 MG TABLET PO SCH (05:54)
[2022-02-02] MEDS: POTASSIUM CHLORIDE 20 MEQ TABLET PO PRN (06:25)
[2022-02-02] MEDS ORDERED: HALOPERIDOL 5 MG/ML AMP IM ONE (07:28)
[2022-02-02] MEDS: SERTRALINE 25 MG TABLET PO SCH (10:55)
[2022-02-02] MEDS: AMIODARONE 200 MG TABLET PO SCH (10:55)
[2022-02-02] MEDS: METOPROLOL TARTRATE 25 MG TABLET PO SCH ×2 (10:55→17:50)
[2022-02-02] MEDS: ALPRAZolam 0.25 MG TABLET PO PRN ×2 (10:55→22:00)
[2022-02-02] MEDS: traMADol 50 MG TABLET PO PRN (17:50)
[2022-02-02] MEDS: DOCUSATE SODIUM 100 MG CAPSULE PO SCH ×2 (19:29→22:00)
[2022-02-02] MEDS: HALOPERIDOL 5 MG/ML AMP IM PRN (19:30)
[2022-02-03] MEDS: HALOPERIDOL 5 MG/ML AMP IM PRN ×2 (01:49→16:35)
[2022-02-03] MEDS: PIPERACILLIN/TAZOBACTAM 3,375 MG in SODIUM CHLORIDE 0.9% 100 ML IV SCH ×3 (02:55→18:28)
[2022-02-03] MEDS: PANTOPRAZOLE 40 MG TABLET PO SCH (05:49)
[2022-02-03 06:45] LABS: Basophils % 0.7 % (0.0-0.8); Eosinophils % 0.7 % (0.00-10.9); Hemoglobin 7.7 GM/DL (12.0-16.0); Immature Granulocytes % 0.2 %; Immature Granulocytes Absolute 0.01 #; Lymphocytes # 0.9 10*3/uL (1.4-4.0); Lymphocytes % 19.5 % (21.3-54.2); Mean Corpuscular HGB Conc 30.8 GM/DL (32-36); Mean Platelet Volume 9.5 FL (9.6-12.0); Monocytes # 0.3 10*3/uL (0.11-0.8); Monocytes % 5.9 % (1.7-12.7); Platelet Count 208 T/CUMM (130-400); Red Blood Count 2.45 MC/CUMM (3.8-5.5); Red Cell Distribution Width 24.5 % (9.3-17.3); White Blood Count 4.6 T/CUMM (4-12)
[2022-02-03 07:11] LABS: Platelet Estimate Normal
[2022-02-03 07:12] LABS: Acanthocytes Few; Helmet Cells Few; Macrocytosis Slight; Poikilocytosis 1+; Tear Drop Cells Few
[2022-02-03 07:19] LABS: Calcium 8.6 MG/DL (8.5-10.1); Osmolality,Calculated 274.4 MOS/KG (273-304); Potassium 3.8 MMOL/L (3.5-5.1)
[2022-02-03 07:20] LABS: Albumin 2.8 G/DL (3.4-5.0); Bilirubin,Direct 0.88 MG/DL (0.0-0.20); Bilirubin,Total 1.9 MG/DL (0.20-1.00); Total Protein 6.2 G/DL (6.4-8.2)
[2022-02-03] MEDS: METOPROLOL TARTRATE 25 MG TABLET PO SCH ×2 (10:36→16:35)
[2022-02-03] MEDS: AMIODARONE 200 MG TABLET PO SCH (10:36)
[2022-02-03] MEDS: DOCUSATE SODIUM 100 MG CAPSULE PO SCH (10:36)
[2022-02-03] MEDS: SERTRALINE 25 MG TABLET PO SCH (10:37)
[2022-02-03] MEDS: SODIUM CHLORIDE 0.9% 1,000 ML IV SCH (10:38)
[2022-02-03] MEDS: traMADol 50 MG TABLET PO PRN (10:38)
[2022-02-03] MEDS: ACETAMINOPHEN 325 MG TABLET PO PRN (16:35)
[2022-02-04 02:16] LABS: Mucus,Urine Occasional /LPF (Occasional); RBC,Urine <1 /HPF (0-4); Squamous Epithelial Cell,Urine Occasional /HPF (0-10)
[2022-02-04 02:17] LABS: Bilirubin,Urine Negative (Negative); Blood, Urine Negative (Negative); Glucose,Urine (UA) Negative (Negative); Ketones,Urine Negative (Negative); Nitrite,Urine Negative (Negative); Protein,Urine Negative (Negative); Urine Appearance Clear (Clear); Urine Color Yellow (Yellow)
[2022-02-04] MEDS: DOCUSATE SODIUM 100 MG CAPSULE PO SCH ×3 (02:52→20:33)
[2022-02-04] MEDS: PIPERACILLIN/TAZOBACTAM 3,375 MG in SODIUM CHLORIDE 0.9% 100 ML IV SCH ×3 (02:55→18:34)
[2022-02-04] MEDS: SODIUM CHLORIDE 0.9% 1,000 ML IV SCH ×2 (03:00→10:14)
[2022-02-04 05:41] LABS: Basophils % 0.4 % (0.0-0.8); Eosinophils % 0.3 % (0.00-10.9); Hematocrit 27.9 VOL% (35.7-47.0); Hemoglobin 8.6 GM/DL (12.0-16.0); Immature Granulocytes % 0.4 %; Immature Granulocytes Absolute 0.04 #; Lymphocytes # 1.2 10*3/uL (1.4-4.0); Lymphocytes % 12.4 % (21.3-54.2); Mean Corpuscular HGB Conc 30.8 GM/DL (32-36); Mean Corpuscular Volume 100.7 FL (87-102); Mean Platelet Volume 9.5 FL (9.6-12.0); Monocytes # 0.5 10*3/uL (0.11-0.8); Monocytes % 5.3 % (1.7-12.7); Neutrophils % 81.2 % (38.7-73.9); Platelet Count 228 T/CUMM (130-400); Red Blood Count 2.77 MC/CUMM (3.8-5.5); Red Cell Distribution Width 24.8 % (9.3-17.3); White Blood Count 9.6 T/CUMM (4-12)
[2022-02-04 05:53] LABS: Calcium 8.6 MG/DL (8.5-10.1); Potassium 3.7 MMOL/L (3.5-5.1)
[2022-02-04 06:09] LABS: Acanthocytes Few; Helmet Cells Few; Platelet Estimate Adequate; Poikilocytosis 1+
[2022-02-04] MEDS: SERTRALINE 25 MG TABLET PO SCH (10:14)
[2022-02-04] MEDS: AMIODARONE 200 MG TABLET PO SCH (10:14)
[2022-02-04] MEDS: METOPROLOL TARTRATE 25 MG TABLET PO SCH ×2 (10:14→16:42)
[2022-02-04] MEDS: PANTOPRAZOLE 40 MG TABLET PO SCH (10:15)
[2022-02-04] MEDS: ALPRAZolam 0.25 MG TABLET PO PRN (10:15)
[2022-02-04] MEDS: HALOPERIDOL 5 MG/ML AMP IM PRN ×2 (14:27→22:14)
[2022-02-05] MEDS: PIPERACILLIN/TAZOBACTAM 3,375 MG in SODIUM CHLORIDE 0.9% 100 ML IV SCH ×3 (03:26→22:17)
[2022-02-05] MEDS: ALPRAZolam 0.25 MG TABLET PO PRN ×2 (05:50→18:40)
[2022-02-05] MEDS: PANTOPRAZOLE 40 MG TABLET PO SCH (05:50)
[2022-02-05 06:16] LABS: Basophils % 0.3 % (0.0-0.8); Eosinophils % 0.1 % (0.00-10.9); Hematocrit 25.2 VOL% (35.7-47.0); Hemoglobin 7.6 GM/DL (12.0-16.0); Immature Granulocytes % 0.6 %; Immature Granulocytes Absolute 0.05 #; Lymphocytes # 0.9 10*3/uL (1.4-4.0); Lymphocytes % 9.4 % (21.3-54.2); Mean Corpuscular HGB Conc 30.2 GM/DL (32-36); Mean Platelet Volume 10.4 FL (9.6-12.0); Monocytes # 0.4 10*3/uL (0.11-0.8); Monocytes % 4.2 % (1.7-12.7); Neutrophils % 85.4 % (38.7-73.9); Platelet Count 234 T/CUMM (130-400); Red Blood Count 2.47 MC/CUMM (3.8-5.5); Red Cell Distribution Width 25.3 % (9.3-17.3)
[2022-02-05 06:37] LABS: Calcium 8.8 MG/DL (8.5-10.1); Osmolality,Calculated 275.1 MOS/KG (273-304); Potassium 3.1 MMOL/L (3.5-5.1)
[2022-02-05 08:31] LABS: INR 1.2; PT Patient Result 12.6 SECS (10.5-12.0)
[2022-02-05] MEDS ORDERED: POTASSIUM CHLORIDE 20 MEQ TABLET PO ONE (09:16)
[2022-02-05] MEDS: AMIODARONE 200 MG TABLET PO SCH (09:59)
[2022-02-05] MEDS: SERTRALINE 25 MG TABLET PO SCH (09:59)
[2022-02-05] MEDS: METOPROLOL TARTRATE 25 MG TABLET PO SCH ×2 (10:00→17:53)
[2022-02-05] MEDS: DOCUSATE SODIUM 100 MG CAPSULE PO SCH ×2 (10:01→22:18)
[2022-02-06] MEDS: ALPRAZolam 0.25 MG TABLET PO PRN ×2 (03:00→20:56)
[2022-02-06] MEDS: PIPERACILLIN/TAZOBACTAM 3,375 MG in SODIUM CHLORIDE 0.9% 100 ML IV SCH ×3 (03:05→20:56)
[2022-02-06 05:20] LABS: Basophils % 0.6 % (0.0-0.8); Eosinophils % 0.3 % (0.00-10.9); Hematocrit 24.5 VOL% (35.7-47.0); Hemoglobin 7.4 GM/DL (12.0-16.0); Immature Granulocytes % 0.6 %; Immature Granulocytes Absolute 0.04 #; Lymphocytes # 1.2 10*3/uL (1.4-4.0); Lymphocytes % 16.8 % (21.3-54.2); Mean Corpuscular HGB Conc 30.2 GM/DL (32-36); Mean Corpuscular Volume 102.9 FL (87-102); Mean Platelet Volume 9.8 FL (9.6-12.0); Monocytes # 0.3 10*3/uL (0.11-0.8); Monocytes % 4.2 % (1.7-12.7); Neutrophils % 77.5 % (38.7-73.9); Platelet Count 211 T/CUMM (130-400); Red Blood Count 2.38 MC/CUMM (3.8-5.5); Red Cell Distribution Width 25.5 % (9.3-17.3); White Blood Count 6.9 T/CUMM (4-12)
[2022-02-06 05:50] LABS: Calcium 8.7 MG/DL (8.5-10.1); Osmolality,Calculated 277.8 MOS/KG (273-304)
[2022-02-06] MEDS: PANTOPRAZOLE 40 MG TABLET PO SCH (05:58)
[2022-02-06] MEDS ORDERED: POTASSIUM CHLORIDE 20 MEQ TABLET PO ONE (09:14)
[2022-02-06] MEDS: AMIODARONE 200 MG TABLET PO SCH (09:56)
[2022-02-06] MEDS: SERTRALINE 25 MG TABLET PO SCH (09:56)
[2022-02-06] MEDS: METOPROLOL TARTRATE 25 MG TABLET PO SCH ×2 (09:56→16:31)
[2022-02-06] MEDS: DOCUSATE SODIUM 100 MG CAPSULE PO SCH ×2 (09:56→20:56)
[2022-02-06] MEDS: APIXABAN 2.5 MG TABLET PO SCH ×2 (10:01→20:55)
[2022-02-06] MEDS: HALOPERIDOL 5 MG/ML AMP IM PRN (22:40)
[2022-02-07] MEDS: PIPERACILLIN/TAZOBACTAM 3,375 MG in SODIUM CHLORIDE 0.9% 100 ML IV SCH ×3 (04:56→20:49)
[2022-02-07 05:44] LABS: Basophils % 0.5 % (0.0-0.8); Eosinophils % 0.3 % (0.00-10.9); Hematocrit 27.1 VOL% (35.7-47.0); Hemoglobin 8.2 GM/DL (12.0-16.0); Immature Granulocytes % 0.5 %; Immature Granulocytes Absolute 0.04 #; Lymphocytes # 1.5 10*3/uL (1.4-4.0); Lymphocytes % 20.4 % (21.3-54.2); Mean Corpuscular HGB Conc 30.3 GM/DL (32-36); Mean Corpuscular Volume 104.2 FL (87-102); Monocytes # 0.4 10*3/uL (0.11-0.8); Monocytes % 4.9 % (1.7-12.7); Neutrophils % 73.4 % (38.7-73.9); Platelet Count 190 T/CUMM (130-400); Red Cell Distribution Width 25.7 % (9.3-17.3); White Blood Count 7.6 T/CUMM (4-12)
[2022-02-07 05:58] LABS: Calcium 8.5 MG/DL (8.5-10.1); Osmolality,Calculated 280.5 MOS/KG (273-304); Potassium 3.1 MMOL/L (3.5-5.1)
[2022-02-07] MEDS: ALPRAZolam 0.25 MG TABLET PO PRN ×3 (06:37→20:52)
[2022-02-07] MEDS: PANTOPRAZOLE 40 MG TABLET PO SCH (06:37)
[2022-02-07] MEDS ORDERED: FUROSEMIDE 20 MG TABLET PO SCH (09:00)
[2022-02-07] MEDS: SERTRALINE 25 MG TABLET PO SCH (09:25)
[2022-02-07] MEDS: SPIRONOLACTONE 25 MG TABLET PO SCH (09:25)
[2022-02-07] MEDS: DOCUSATE SODIUM 100 MG CAPSULE PO SCH ×2 (09:25→21:56)
[2022-02-07] MEDS: METOPROLOL TARTRATE 25 MG TABLET PO SCH ×2 (09:25→17:27)
[2022-02-07] MEDS: APIXABAN 2.5 MG TABLET PO SCH ×2 (09:25→20:49)
[2022-02-07] MEDS: AMIODARONE 200 MG TABLET PO SCH (09:25)
[2022-02-07] MEDS: traMADol 50 MG TABLET PO PRN (16:17)
[2022-02-07] MEDS: QUEtiapine 25 MG TABLET PO SCH (17:27)
[2022-02-08] MEDS: PIPERACILLIN/TAZOBACTAM 3,375 MG in SODIUM CHLORIDE 0.9% 100 ML IV SCH (02:34)
[2022-02-08] MEDS: SODIUM CHLORIDE 0.9% 1,000 ML IV SCH (03:48)
[2022-02-08 05:31] LABS: Basophils # 0.1 10*3/uL (0.0-0.2); Basophils % 0.7 % (0.0-0.8); Eosinophils % 0.3 % (0.00-10.9); Hematocrit 25.5 VOL% (35.7-47.0); Hemoglobin 7.6 GM/DL (12.0-16.0); Immature Granulocytes % 0.7 %; Immature Granulocytes Absolute 0.05 #; Lymphocytes # 1.4 10*3/uL (1.4-4.0); Lymphocytes % 20.8 % (21.3-54.2); Mean Corpuscular HGB Conc 29.8 GM/DL (32-36); Mean Corpuscular Volume 104.5 FL (87-102); Mean Platelet Volume 10.1 FL (9.6-12.0); Monocytes # 0.3 10*3/uL (0.11-0.8); Monocytes % 4.5 % (1.7-12.7); Platelet Count 221 T/CUMM (130-400); Red Blood Count 2.44 MC/CUMM (3.8-5.5); Red Cell Distribution Width 26.2 % (9.3-17.3); White Blood Count 6.7 T/CUMM (4-12)
[2022-02-08 05:37] LABS: RBC,Urine 1 /HPF (0-4); Urine Color Yellow (Yellow)
[2022-02-08 05:38] LABS: Bilirubin,Urine Negative (Negative); Blood, Urine Negative (Negative); Glucose,Urine (UA) Negative (Negative); Ketones,Urine Negative (Negative); Nitrite,Urine Negative (Negative); Protein,Urine Negative (Negative); Urine Appearance Clear (Clear); Urine Urobilinogen 0.2 eU/dL (<2.0)
[2022-02-08 05:49] LABS: Calcium 8.4 MG/DL (8.5-10.1); Osmolality,Calculated 281.5 MOS/KG (273-304)
[2022-02-08] MEDS: PANTOPRAZOLE 40 MG TABLET PO SCH (06:08)
[2022-02-08] MEDS: POTASSIUM BICARB EFFERVESCENT 20 MEQ TAB.EFF PER TUBE PRN ×4 (08:58→16:10)
[2022-02-08] MEDS ORDERED: FUROSEMIDE 40 MG TABLET PO SCH (09:00)
[2022-02-08] MEDS: FUROSEMIDE 20 MG TABLET PO SCH (09:00)
[2022-02-08] MEDS: SERTRALINE 25 MG TABLET PO SCH (09:00)
[2022-02-08] MEDS: METOPROLOL TARTRATE 25 MG TABLET PO SCH ×2 (09:00→18:00)
[2022-02-08] MEDS: APIXABAN 2.5 MG TABLET PO SCH ×2 (09:00→20:53)
[2022-02-08] MEDS: SPIRONOLACTONE 25 MG TABLET PO SCH (09:00)
[2022-02-08] MEDS: AMIODARONE 200 MG TABLET PO SCH (09:00)
[2022-02-08] MEDS: DOCUSATE SODIUM 100 MG CAPSULE PO SCH ×2 (09:01→21:29)
[2022-02-08] MEDS: ACETAMINOPHEN 325 MG TABLET PO PRN (10:39)
[2022-02-08] MEDS: QUEtiapine 25 MG TABLET PO SCH (18:00)
[2022-02-08] MEDS: ALPRAZolam 0.25 MG TABLET PO PRN (23:40)
[2022-02-09] MEDS: PANTOPRAZOLE 40 MG TABLET PO SCH (05:53)
[2022-02-09] MEDS ORDERED: SALIVA SUBSTITUTE SPRAY 60 ML CAN SWISH/SWAL PRN (08:47)
[2022-02-09 09:25] LABS: Basophils # 0.1 10*3/uL (0.0-0.2); Basophils % 0.7 % (0.0-0.8); Eosinophils % 0.1 % (0.00-10.9); Hematocrit 27.8 VOL% (35.7-47.0); Hemoglobin 8.2 GM/DL (12.0-16.0); Immature Granulocytes % 0.6 %; Immature Granulocytes Absolute 0.04 #; Lymphocytes # 1.3 10*3/uL (1.4-4.0); Lymphocytes % 18.7 % (21.3-54.2); Mean Corpuscular HGB Conc 29.5 GM/DL (32-36); Mean Corpuscular Volume 105.7 FL (87-102); Mean Platelet Volume 10.6 FL (9.6-12.0); Monocytes # 0.3 10*3/uL (0.11-0.8); Monocytes % 4.3 % (1.7-12.7); Neutrophils % 75.6 % (38.7-73.9); Platelet Count 290 T/CUMM (130-400); Red Blood Count 2.63 MC/CUMM (3.8-5.5); Red Cell Distribution Width 25.8 % (9.3-17.3)
[2022-02-09 09:55] LABS: Calcium 8.7 MG/DL (8.5-10.1); Osmolality,Calculated 281.7 MOS/KG (273-304)
[2022-02-09] MEDS: SERTRALINE 25 MG TABLET PO SCH (10:32)
[2022-02-09] MEDS: AMIODARONE 200 MG TABLET PO SCH (10:32)
[2022-02-09] MEDS: FUROSEMIDE 20 MG TABLET PO SCH (10:32)
[2022-02-09] MEDS: SPIRONOLACTONE 25 MG TABLET PO SCH (10:33)
[2022-02-09] MEDS: ALPRAZolam 0.25 MG TABLET PO PRN (10:33)
[2022-02-09] MEDS: APIXABAN 2.5 MG TABLET PO SCH (10:33)
[2022-02-09] MEDS: METOPROLOL TARTRATE 25 MG TABLET PO SCH (10:33)
[2022-02-09] MEDS: DOCUSATE SODIUM 100 MG CAPSULE PO SCH (10:34)
[2022-02-09] MEDS: SODIUM CHLORIDE 0.9% 1,000 ML IV SCH ×2 (11:27→11:28)
[2022-02-09 12:02] VITALS: BP 134/52
[2022-02-09 23:01] LABS: CDT Result Negative (Negative); CDT Specimen Source STOOL
== END 2022-02-09 15:18 | DRG 178 ==
LOC: N.ED 14:58 → N.EDINP 14:58 → N.5E 19:55
PROVIDERS: ADMIT Internal Medicine; ATTEND Internal Medicine